=== PATIENT | male | born 1990 | race Caucasian/White ===

== ENCOUNTER 2024-03-29 08:19 | Outpatient (REF) | payer OTHER, SELFPAY ==
[2024-03-29 08:37] LABS: MANUAL DIFF FLAG NO
[2024-03-29 09:16] LABS: Basophils Absolute Auto 0.1 X10*3/uL (0.0-0.2); Eosinophils Absolute Auto 0.2 X10*3/uL (0.0-0.4); Eosinophils Percent Auto 3.3 % (0-4); Hematocrit 40.2 % (42.0-52.0); Hemoglobin 13.5 g/dl (14.0-18.0); Imm Gran Abs Auto 0.02 X10*3/uL (0.00-0.03); Imm Gran Pct Auto 0.4 % (0.0-0.4); Lymphocytes Absolute Auto 1.8 X10*3/uL (1.2-4.9); Lymphocytes Percent Auto 34.2 % (20-40); Mean Corpuscular HGB Conc 33.6 g/dl (31.0-36.0); Mean Corpuscular Hemoglobin 31.2 pg (27.0-33.0); Mean Corpuscular Volume 92.8 fL (80.0-98.0); Mean Platelet Volume 11.2 fL (9.4-12.4); Monocytes Absolute Auto 0.5 X10*3/uL (0.1-1.2); Monocytes Percent Auto 10.4 % (2-11); Neutrophils Absolute Auto 2.7 x10*3/uL (2.0-8.3); Neutrophils Percent Auto 50.7 % (45-73); Platelet Count 210 X10*3/uL (160-400); Red Blood Count 4.33 X10*6/uL (4.60-5.80); Red Cell Distribution Width 12.7 % (11.0-16.0); White Blood Count 5.2 X10*3/uL (4.8-10.8)
[2024-03-29 10:26] LABS: Alanine Aminotransferase 16 U/L (0-40); Albumin Level 4.4 g/dL (3.5-5.0); Alkaline Phosphatase 55 U/L (39-117); Anion Gap 13 (12-20); Aspartate Amino Transferase 17 U/L (5-37); Bilirubin Total 0.9 mg/dL (0.0-1.0); Blood Urea Nitrogen 18 mg/dL (9-16); Calcium 8.9 mg/dL (8.4-10.2); Carbon Dioxide 28 mmol/L (22-29); Chloride 106 mmol/L (96-108); Estimated Glomerular Filt Rate 57; Glucose Random 102 mg/dL (60-115); Potassium 4.3 mmol/L (3.3-5.1); Sodium 143 mmol/L (135-145); Thyroid Stimulating Hormone 1.61 uIU/mL (0.32-4.0); Total Protein 6.9 g/dL (6.5-8.0)
[2024-03-29 11:14] LABS: Insulin 11 uU/mL (2-29)
[2024-03-30 10:09] LABS: Follicle Stimulating Hormone 3.2 mIU/mL (1.4-12.8); Lutenizing Hormone 4.5 mIU/mL (1.5-9.3); Triiodothyronine T3 Free 3.1 pg/mL (2.3-4.2)
[2024-03-30 11:08] LABS: Thyroglobulin Antibodies <1 IU/mL (< or = 1); Thyroid Peroxidase Antibodies 1 IU/mL (<9)
[2024-04-02 15:38] LABS: Triiodothyronine T3 Reverse 14 ng/dL (8-25)
[2024-04-03 07:23] LABS: Dihydrotestosterone 16 ng/dL (12-65)
[2024-04-06 02:58] LABS: Estradiol Ultra Sensitive 22 pg/mL (< OR = 29)
[2024-04-09 14:18] LABS: Testosterone, Total 313 ng/dL (250-1100)
== END 2024-03-29 08:20 | disposition home or self-care (01) ==
LOC: HO.LAB 08:19
PROVIDERS: Visit Provider Internal Medicine
DX: Z00.00 Encounter for general adult medical examination without abnormal findings (principal); E11.9 Type 2 diabetes mellitus without complications; R53.83 Other fatigue; E78.5 Hyperlipidemia, unspecified; E29.1 Testicular hypofunction
CPT/HCPCS: 36415; 80053; 82642; 82670; 83001; 83002; 83525; 84402; 84403; 84439; 84443; 84481; 84482; 85025; 86376; 86800

== ENCOUNTER 2024-06-18 08:12 | Outpatient (REF) | payer OTHER, SELFPAY ==
[2024-06-18 08:30] LABS: MANUAL DIFF FLAG NO
[2024-06-18 08:53] LABS: Basophils Absolute Auto 0.1 X10*3/uL (0.0-0.2); Basophils Percent Auto 0.9 % (0-2); Eosinophils Absolute Auto 0.1 X10*3/uL (0.0-0.4); Hematocrit 40.5 % (42.0-52.0); Hemoglobin 13.7 g/dl (14.0-18.0); Imm Gran Abs Auto 0.05 X10*3/uL (0.00-0.03); Imm Gran Pct Auto 0.7 % (0.0-0.4); Lymphocytes Absolute Auto 2.1 X10*3/uL (1.2-4.9); Lymphocytes Percent Auto 29.6 % (20-40); Mean Corpuscular HGB Conc 33.8 g/dl (31.0-36.0); Mean Corpuscular Volume 91.6 fL (80.0-98.0); Mean Platelet Volume 10.5 fL (9.4-12.4); Monocytes Absolute Auto 0.6 X10*3/uL (0.1-1.2); Monocytes Percent Auto 8.9 % (2-11); Neutrophils Percent Auto 57.9 % (45-73); Platelet Count 271 X10*3/uL (160-400); Red Blood Count 4.42 X10*6/uL (4.60-5.80); Red Cell Distribution Width 13.1 % (11.0-16.0)
[2024-06-18 09:27] LABS: Alanine Aminotransferase 14 U/L (0-40); Albumin Level 4.5 g/dL (3.5-5.0); Alkaline Phosphatase 57 U/L (39-117); Anion Gap 13 (12-20); Aspartate Amino Transferase 16 U/L (5-37); Bilirubin Total 2.1 mg/dL (0.0-1.0); Blood Urea Nitrogen 19 mg/dL (9-16); Calcium 9.9 mg/dL (8.4-10.2); Carbon Dioxide 27 mmol/L (22-29); Chloride 107 mmol/L (96-108); Estimated Glomerular Filt Rate 60; Glucose Random 104 mg/dL (60-115); Iron 74 mcg/dL (45-160); Percent Iron Saturation 26 % (15-50); Potassium 4.3 mmol/L (3.3-5.1); Sodium 143 mmol/L (135-145); Total Iron Binding Capacity 281 mcg/dL (228-428); Total Protein 7.1 g/dL (6.5-8.0); Unsaturated Iron Binding 207 ug/dL
[2024-06-18 09:44] LABS: Ferritin 114 ng/mL (20-250)
[2024-07-02 11:31] LABS: Testosterone, Total 426
[2024-07-02 11:32] LABS: Testosterone, Free 97.6; eGFR (Cystatin C) 72
[2024-07-02 11:33] LABS: Cystatin C 1.15
== END 2024-06-18 08:13 | disposition home or self-care (01) ==
LOC: HO.LAB 08:12
PROVIDERS: PCP Registered Nurse; Visit Provider Physician Assistant
DX: R94.4 Abnormal results of kidney function studies (principal); E29.1 Testicular hypofunction; D64.9 Anemia, unspecified; R53.83 Other fatigue
CPT/HCPCS: 36415; 80053; 82610; 82728; 83540; 84402; 84403; 85025

== ENCOUNTER 2024-08-31 13:48 | Outpatient (REF) | payer OTHER, SELFPAY ==
[2024-09-01 03:51] LABS: CT PCR NOT DETECTED (Not Detect.); NG PCR NOT DETECTED (Not Detect.)
[2024-09-01 08:25] LABS: HIV AB/AG Nonreactive (Nonreactive); HIV Num 1 0.06 S/CO (0.00-0.99)
[2024-09-01 08:34] LABS: Syphilis Screen Nonreactive (Nonreactive)
== END 2024-08-31 13:49 | disposition home or self-care (01) ==
LOC: HO.LAB 13:48
PROVIDERS: PCP Registered Nurse; Visit Provider Registered Nurse
DX: Z11.3 Encounter for screening for infections with a predominantly sexual mode of transmission (principal)
CPT/HCPCS: 86780; 87389; 87491; 87591

== ENCOUNTER 2025-01-17 08:18 | Outpatient (REF) | payer OTHER, SELFPAY ==
[2025-01-17 09:22] LABS: Anion Gap 9 (12-20); Blood Urea Nitrogen 14 mg/dL (9-16); Calcium 9.5 mg/dL (8.4-10.2); Carbon Dioxide 26 mmol/L (22-29); Chloride 111 mmol/L (96-108); Estimated Glomerular Filt Rate > 60; Glucose Random 101 mg/dL (60-115); Sodium 142 mmol/L (135-145)
[2025-01-17 09:38] LABS: HIV AB/AG Nonreactive (Nonreactive); HIV Num 1 0.08 S/CO (0.00-0.99); Syphilis Screen Nonreactive (Nonreactive)
== END 2025-01-17 08:19 | disposition home or self-care (01) ==
LOC: HO.LAB 08:18
PROVIDERS: PCP Registered Nurse; Visit Provider Nurse Practitioner
DX: Z20.2 Contact with and (suspected) exposure to infections with a predominantly sexual mode of transmission (principal)
CPT/HCPCS: 36415; 80048; 86780; 87389

== ENCOUNTER 2025-05-04 12:49 | Outpatient (REF) | payer OTHER, SELFPAY ==
--- OUTSIDE RECORDS SUMMARY | 2025-05-04 13:22 | XMS_ITS | Encounter Summary ---
Author Organization [facility] Address [address] [place] [address] Phone Care Team Providers Care Writing Tutor Name Role Phone Tejal Murillo STEPHANIE Primary Care Provider [phone] Nalini Kilgore MD Primary Care Provider [phone] Encounter Details Date Type Department Care Team (Late st Contact Info) Description 11/07/2023 Procedure Pass [facility] Admitting Dept Virtual Department [address] [place] [address] Social History Tobacco Use Types Packs/Day Years Used Date Smoking Tobacco: Former Cigarettes 1 02 04 011 - 2015 Smokeless Tobacco: Never Alcohol Use Standard Drinks/Week Comments Not Currently 0 (1 standard drink = 0.6 oz pur e alcohol) once every few months Child or Family Care Answer Date Record ed Do you have problems with on e of the following making it difficult for you to work, study, or receive health care? No 05/19/2023 Education Answer Date Recorded Are you interested in help w ith more adult education (for example, completing high school, GED, job training, learning the [place] language, technical skills, or developing parenting skills)? No 05/19/2023 Are you concerned about learning? Not on file 05/19/2023 No 05/19/2023 Yes 05/19/2023 Food Answer Date Recorded Within the past 6 months we worried whether our food would run out before we got money to buy more. Sometimes True 023 Within the past 6 months the food we bought just didn't last and we didn't have enough money to get more. Sometimes True 05/06 Residential Stability Answer Date Recor ded What is your housing situation today? I have yajaira thibodeaux 05/19/2023 How many times have you move d in the past 12 months? Zero (I did not move) 05/19/2023 Paying for Meds Answer Date Recorded Do you have trouble paying for medicines? No 05/19/2023 Paying Utility Bills Answer Date Record ed Do you have trouble paying your heating or elect ricity bill? Yes 05/19/2023 Transportation Answer Date Recorded Has the lack of transportati on kept you from medical appointments or from getting medications? No 05/19/2023 Unemployment Answer Date Recorded Are you currently unemployed or working on a part-time or temporary basis, and looking for work? No 05/19/2023 Digital Access Answer Date Recorded No 05/19/2023 Yes 05/19/2023 Do you have reliable internet access at home? Ye s 05/19/2023 Do you have a device (e.g., phone, tablet, computer) with a working camera? Yes 05/19/2023 Intimate Partner Violence Answer Date R ecorded Are you denied basic needs s uch as food, clothing, or medical care? No 11/07/2023 In the past 12 months have y ou been in a relationship with a person who hurts, threatens, or tries to control you? No 11/07/2023 Are you denied basic needs s uch as food, clothing, or medical care? No 11/07/2023 In the past 12 months have y ou been in a relationship with a person who hurts, threatens, or tries to control you? No 11/07/2023 Sex and Gender Information Value Date Recorded Sex Assigned at Male 05/19/2023 2:27 PM EDT Legal Sex Male 11:45 AM EDT Gender Identity Male 05/19/2023 2:27 PM EDT Sexual Orientation Lesbian or Andrade 05/19/2023 2: 27 PM EDT Sexual Orientation Queer 05/19/2023 2: 27 PM EDT documented as of this encounter Plan of Treatment Not on file documented as of this encounter Visit Diagnoses Not on filedocumented in this encounter Additional Health Concerns Assessment Noted Time PHQ-2 Depression Total Score: 2 05/19/20 2:35 PM EDT documented as of this encounter Care Teams Writing Tutor Relationship Specialty Start Date End Date Chidi TejalSTEPHANIE Lucas [address] [facility] [address] [place] [address] [email or web address] PCP - General Nurse Practitioner 05/29/23 11/25/24 Nalini Kilgore MD [address] [place] [address] [address] [place] [address] [email or web address] PCP - General Internal Medicine 11/26/24 documented as of this encounter Additional Source Comments The information contained in this document represents components of the legal health record. It is not the complete legal health record.[facility]
--- OUTSIDE RECORDS SUMMARY | 2025-05-04 13:22 | XMS_ITS | Clinical Summary ---
Author Organization [facility] Address [address] [place] [address] Care Team Providers Care Animal Anatomist Name Role Phone Unavailable Primary Care Provider Unavailabl e Source Comments PLEASE NOTE, if this patient is a minor, it may be UNLAWFUL to discuss sensitive information that is contained in these records (such as FAMILY PLANNING, MENTAL HEALTH or SUBSTANCE ABUSE) with the minor patient's parent or other person without the patient's specific authorization.[facility] Allergies No known active allergies Medications TRUVADA 200-300 mg per tabletIndication s:High risk bisexual behavior TAKE 1 TABLET BY MOUTH ONCE DAILY. TAKE AT THE SAME TIME EACH DAY. 30 Tab 04/09/2018 Active Active Problems Problem Noted Date Diagnosed Date Syncope 10/16/2017 Overview (10/16/2017): ECHO indicated; trivial redundancy of the mitral and tricuspid valves with trivial/physiologic regurgitation. This is essentially a normal cardiac echo. 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 Anxiety and depression 09/23/2017 ADHD 05/15/2017 Mixed hyperlipidemia 05/15/2017 Iron deficiency anemia 05/15/2017 Vitamin D deficiency 05/15/2017 Genital warts 05/15/2017 Viral warts 05/15/2017 Immunizations Immunization Administration Dates Next Due Hep A, adult 12/05/2017 Hep B, Adult/Adol ([id number] ULT) 07/24/2017,06/24/2017 TDAP 06/24/2017 Family History Medical History Relation Name Comments Heart Problems Father High Cholesterol Father High Cholesterol Mother Relation Name Status Comments Father Mother Social History Tobacco Use Types Packs/Day Years Used Date Smoking Tobacco: Former Smokeless Tobacco: Never Tobacco Cessation:Counseling Given: Yes Comments: years ago quit Alcohol Use Standard Drinks/Week Comments Yes 0 (1 standard drink = 0.6 oz pur e alcohol) occasionally Social Connections Answer Date Recorded Social Connections and Isolation 0 05/27/2019 Financial Resource Strain Answer Date R ecorded Financial Resource Strain 0 2018 Stress Answer Date Recorded Stress 0 05/27/2019 Physical Activity Answer Date Recorded Physical Activity 0 05/27/2019 Food Insecurity Answer Date Recorded Food 0 05/27/2019 Transportation Needs Answer Date Record ed Transportation 0 05/27/2019 Housing Stability Answer Date Recorded Housing 0 05/27/2019 Safety and Environment Answer Date Tony rded Safety 0 05/27/2019 Utilities Answer Date Recorded Utilities 0 05/27/2019 Employment Answer Date Recorded Employment 0 05/27/2019 Sex and Gender Information Value Date Recorded Sex Assigned at Male 07/24/2017 11:18 AM PDT Legal Sex Male 9:49 AM PDT Gender Identity Male 07/24/2017 11:18 AM PDT Sexual Orientation Don't know 07/24/2017 11 :18 AM PDT Occupation Industry Job Start Date Job End Date [employer] Not on file Not on file Not on file Last Filed Vital Signs Vital Sign Reading Time Taken Comments Blood Pressure 100/64 12/05/2017 4:29 PM EST Pulse 74 12/05/2017 4:29 PM EST Temperature 36.5 C (97.7 F) 12/05/2017 4:29 PM EST Respiratory Rate 14 12/05/2017 4:29 PM EST Oxygen Saturation 99% 11/05/2017 9:11 AM EST Inhaled Oxygen Concentration - - Weight 90.7 kg (200 lb) 12/05/2017 4:29 PM EST Height 188 cm (6' 2 ) 12/05/2017 4:29 PM EST Body Mass Index 25.68 12/05/2017 4:29 PM EST Plan of Treatment Not on file Insurance [facility]
[2025-05-04 18:34] LABS: Anion Gap 13 (12-20); Blood Urea Nitrogen 15 mg/dL (9-16); Calcium 9.1 mg/dL (8.4-10.2); Carbon Dioxide 25 mmol/L (22-29); Chloride 108 mmol/L (96-108); Estimated Glomerular Filt Rate > 60; Potassium 4.1 mmol/L (3.3-5.1); Sodium 142 mmol/L (135-145)
[2025-05-05 08:08] LABS: HIV Num 1 0.05 S/CO (0.00-0.99)
[2025-05-05 08:09] LABS: Syphilis Screen Nonreactive (Nonreactive)
[2025-05-05 10:05] LABS: CT PCR Urine NOT DETECTED (Not Detect.); NG PCR Urine NOT DETECTED (Not Detect.)
== END 2025-05-04 12:50 | disposition home or self-care (01) ==
LOC: HO.WFDLDS 12:49
PROVIDERS: Visit Provider Nurse Practitioner
DX: Z11.3 Encounter for screening for infections with a predominantly sexual mode of transmission (principal); Z11.4 Encounter for screening for human immunodeficiency virus [HIV]; Z79.899 Other long term (current) drug therapy
CPT/HCPCS: 80048; 86780; 87389; 87491; 87591

== ENCOUNTER 2025-05-05 10:52 | Outpatient (REF) | payer OTHER, SELFPAY ==
--- OUTSIDE RECORDS SUMMARY | 2025-05-05 11:41 | XMS_ITS | Encounter Summary ---
Author Organization [facility] Address [address] [place] [address] Phone Care Team Providers Care Gravel Weigher Name Role Phone Tejal Murillo STEPHANIE Primary Care Provider Nalini Kilgore MD Primary Care Provider [phone] Encounter Details Date Type Department Care Team (Late st Contact Info) Description 11/07/2023 Procedure Pass [facility]oscopy Admitting Dept Virtual Department [address] [place] [address] Social History Tobacco Use Types Packs/Day Years [...] high school, GED, job training, learning the [place] language, technical skills, or developing parenting skills)? [...] documented as of this encounter Care Teams Gravel Weigher Relationship Specialty Start Date End Date Chidi TejalSTEPHANIE Lucas [address] [facility] [address] [place] [address] [email or web address] PCP - General Nurse Practitioner 05/29/23 11/25/24 Nalini Kilgore MD [address] [place] [address] [address] [place] [address] [email or web address] PCP - General Internal Medicine 11/26/24 documented as of this encounter Additional Source Comments The information contained in this document represents components of the legal health record. It is not the complete legal health record.[facility]
--- OUTSIDE RECORDS SUMMARY | 2025-05-05 11:41 | XMS_ITS | Clinical Summary ---
Author Organization [facility] Address [address] [place] [address] Care Team Providers Care Set Up Mold Technician Name Role Phone Unavailable Primary Care Provider [...] Hep A, adult 12/05/2017 Hep B, Adult/Adol ([id number]/RECOMBIVAX-AD ULT) 07/24/2017,06/24/2017 TDAP 06/24/2017 Family History Medical [...] Treatment Not on file Insurance [facility]
[2025-05-06 21:13] LABS: C. Trachomatis RNA TMA, Throat NOT DETECTED (NOT DETECTED); N. gonorrhoeae RNA TMA, Throat NOT DETECTED (NOT DETECTED)
== END 2025-05-05 10:53 | disposition home or self-care (01) ==
LOC: HO.WFDLDS 10:52
PROVIDERS: Visit Provider Nurse Practitioner
DX: Z79.899 Other long term (current) drug therapy (principal)
CPT/HCPCS: 87491; 87591